=== PATIENT | male | born 1945 | race African-American/Black ===

== ENCOUNTER → 2018-07-18 | Outpatient (CLI) | payer MEDICARE, OTHER, MEDICAID ==
[2018-07-18 14:06] LABS: ADD MAN DIFF? NO; ADD UMIC NO; UR ASCORBIC ACID 40 mg/dL (NEGATIVE); UR BILIRUBIN (Dip) NEGATIVE (NEGATIVE); UR BLOOD (Dip) NEGATIVE (NEGATIVE); UR CLARITY CLEAR (CLEAR); UR COLOR YELLOW (YELLOW); UR GLUCOSE (Dip) NEGATIVE (NEGATIVE); UR KETONES (Dip) TRACE mg/dL (NEGATIVE); UR LEUKOCYTE ESTERASE (Dip) NEGATIVE Leu/ul (NEGATIVE); UR NITRITE (Dip) NEGATIVE (NEGATIVE); UR SPECIFIC GRAVITY (Dip) 1.018 (1.003-1.030); UR TOTAL PROTEIN (Dip) NEGATIVE (NEGATIVE); UR UROBILINOGEN (Dip) NEGATIVE (NEGATIVE)
[2018-07-18 14:08] LABS: BASOPHILS % 0.4 % (0.0-2.0); EOSINOPHILS # 0.1 10^3/ul (0.0-0.5); EOSINOPHILS % 1.1 % (0.0-7.0); HEMATOCRIT 47.7 % (42.0-52.0); HEMOGLOBIN 14.9 g/dl (14.0-18.0); LYMPHOCYTES # 2.2 10^3/ul (0.8-2.9); LYMPHOCYTES % 30.3 % (15.0-51.0); MEAN CORPUSCULAR HGB CONC 31.2 g/dl (32.0-37.0); MEAN CORPUSCULAR VOLUME 89.7 fl (82.0-101.0); MEAN PLATELET VOLUME 10.1 fl (7.4-10.4); MONOCYTE # 0.7 10^3/ul (0.3-0.9); MONOCYTES % 9.9 % (0.0-11.0); NEUTROPHIL # 4.2 10^3/ul (1.6-7.5); PLATELET COUNT 199 10^3/UL (140-415); RED BLOOD COUNT 5.32 10^6/ul (4.70-6.10); RED CELL DISTRIBUTION WIDTH 19.2 % (11.5-14.5)
[2018-07-18 14:08] LABS: WHITE BLOOD COUNT 7.2 10^3/ul (4.8-10.8)
[2018-07-18 14:27] LABS: INR 0.94; PROTIME 12.7 Sec (11.9-14.9)
[2018-07-18 14:28] LABS: PARTIAL THROMBOPLASTIN TIME 32.4 Sec (23.0-35.0)
== END | disposition home or self-care (01) ==
LOC: LAB 12:29
DX: Z01.818 Encounter for other preprocedural examination (principal); I10 Essential (primary) hypertension; I65.21 Occlusion and stenosis of right carotid artery; I67.2 Cerebral atherosclerosis; I11.9 Hypertensive heart disease without heart failure
CPT/HCPCS: 71045; 81003; 85025; 85610; 85730; 93005

== ENCOUNTER 2018-07-25 07:25 | Day surgery (SDC) | payer MEDICARE, OTHER ==
[2018-07-25] MEDS ORDERED: CYCLOPENTOLATE/PHENYLEPH 2 ML OPH OPER (08:30)
[2018-07-25] MEDS: TROPICAMIDE 1% 15 ML OPH OPER (08:35)
[2018-07-25] MEDS: MOXIFLOXACIN 0.5% 3 ML OPH OPER (08:35)
[2018-07-25] MEDS: CYCLOPENTOLATE/PHENYLEPH 2 ML OPH OPER (08:35)
[2018-07-25] MEDS: DICLOFENAC 0.1% 2.5 ML OPH OPER (08:35)
[2018-07-25] MEDS: CARBACHOL 0.01% 1.5 ML OPH INJ (10:16)
[2018-07-25] MEDS: CEFAZOLIN 1 GM INJ (10:16)
[2018-07-25] MEDS: DEXAMETHASONE 4 MG/ML 1 ML INJ (10:17)
[2018-07-25] MEDS ORDERED: PROPOFOL 20 ML (10:18)
[2018-07-25] MEDS: EPINEPHrine 1 MG INJ (10:19)
[2018-07-25] MEDS: NA HYALURONATE/CHONDROITIN 0.5 ML SYG (10:20)
[2018-07-25] MEDS: LIDOCAINE 4% (MPF) 5 ML INJ (10:20)
[2018-07-25] MEDS: GENTAMICIN 80 MG INJ (10:20)
[2018-07-25] MEDS: TETRACAINE 0.5% 4 ML OPH (10:21)
[2018-07-25] MEDS ORDERED: hydrALAzine 20 MG INJ IV (10:30)
[2018-07-25] MEDS ORDERED: OXYCODONE/ACETAMINOPHEN (5/325) TAB PO ×2 (10:30)
[2018-07-25] MEDS ORDERED: METOCLOPRAMIDE 10 MG INJ IV (10:30)
[2018-07-25] MEDS ORDERED: DIPHENHYDRAMINE 50 MG INJ IV (10:30)
[2018-07-25] MEDS ORDERED: EPHEDrine 25 MG/5 ML SYG IV (10:30)
[2018-07-25] MEDS ORDERED: MIDAZOLAM 1 MG/ML 2 ML INJ IV (10:30)
[2018-07-25] MEDS ORDERED: LABETALOL HCL 20MG INJ IV (10:30)
[2018-07-25] MEDS ORDERED: FENTAnyl 50 MCG/ML VIAL IV ×3 (10:30)
[2018-07-25] MEDS ORDERED: ONDANSETRON 4 MG INJ IV (10:30)
[2018-07-25] MEDS ORDERED: MEPERIDINE 25 MG INJ IV (10:30)
[2018-07-25] MEDS ORDERED: LABETALOL HCL 20MG INJ (10:51)
== END 2018-07-25 12:35 | disposition home or self-care (01) ==
LOC: SDS 07:25
DX: H26.8 Other specified cataract (principal); I25.10 Atherosclerotic heart disease of native coronary artery without angina pectoris; I10 Essential (primary) hypertension; Z79.82 Long term (current) use of aspirin; I69.354 Hemiplegia and hemiparesis following cerebral infarction affecting left non-dominant side
CPT/HCPCS: 66984